=== PATIENT | female | born 1985 | race Two or more races ===

== ENCOUNTER 2018-05-13 15:29 | Emergency (ER) | payer OTHER ==
[~2018-05-13] VITALS: Ht 160 cm; Wt 65.8 kg
[2018-05-13] MEDS ORDERED: VENTOLIN HFA18 GM INH (15:39)
--- NOTE | 2018-05-13 15:53 | NUR ---
ED Nurse Note: PT WALKED IN TO ER TODAY FROM HOME. AOX4. PT C/O LOWER BACK PAIN AND HEADACHE, PAIN 8/10 X THIS MORNING. PT DENIES ANY RECENT INJURY OR TRAUMA. GAIT STABLE. PT DENIES ANY NUMBNESS OR TINGLING.
[2018-05-13 15:55] VITALS: BP 108/64
[2018-05-13] MEDS ORDERED: Ipratropium 0.02% Inh Soln 2.5ml UD HHN ONE (16:00)
[2018-05-13] MEDS ORDERED: Metoclopramide 10mg/2ml Inj IM ONE (16:00)
[2018-05-13] MEDS ORDERED: Albuterol ud Inhalation HHN ONE (16:00)
[2018-05-13] MEDS ORDERED: Acetaminophen 500mg (ES) tab ORAL ONE (16:00)
[2018-05-13] MEDS ORDERED: Methocarbamol 750mg tab ORAL ONE (16:00)
--- NOTE | 2018-05-13 16:03 | NUR ---
ED Nurse Note: RT AT BEDSIDE.
--- NOTE | 2018-05-13 16:03 | NUR ---
ED Nurse Note: XRAY AT BEDSIDE.
[2018-05-13 16:15] LABS: APPEARANCE,URINE CLEAR; BILIRUBIN, URINE NEGATIVE (NEGATIVE); COLOR,URINE PALE YELLOW; GLUCOSE, URINE (UA) NEGATIVE (NEGATIVE); KETONES,URINE NEGATIVE (NEGATIVE); LEUKOCYTE ESTERASE ,URINE 1+ (NEGATIVE); NITRITE,URINE NEGATIVE (NEGATIVE); PH,URINE 7 (4.5-8.0); PROTEIN,URINE NEGATIVE (NEGATIVE); UROBILINOGEN,URINE NORMAL MG/DL (0.0-1.0)
--- NOTE | 2018-05-13 16:16 | Emergency Room Report ---
History of Present Illness General Chief Complaint: Back Pain-No Injury Source: Patient Present Illness HPI 32-year-old female presents ED for evaluation. Patient complaining of headache and back pain starting today. Denies any fall or injury. Pain is throbbing, 8 out of 10, nonradiating. States she threw up once. Denies photophobia or blurry vision. Denies any neck stiffness. Denies fevers or chills. States she also feels chest tightness. History of asthma. No other aggravating relieving factors. Denies any other associated symptoms Allergies: Coded Allergies: No Known Allergies (Unverified , 05/13/18) Patient History Past Medical History: asthma Past Surgical History: none Pertinent Family History: none Social History: Denies: smoking, alcohol use, drug use Last Menstrual Period: DOES NOT REMEMBER Now: No Immunizations: UTD Reviewed Nursing Documentation: PMH: Agreed; PSxH: Agreed Nursing Documentation-PMH Hx Asthma: Yes Review of Systems All Other Systems: negative except mentioned in HPI Physical Exam Vital Signs Date Time Temp Pulse Resp B/P (MAP) Pulse Ox O2 Delivery O2 Flow Rate FiO2 05/13/18 15:35 98.6 99 19 100/60 99 Room Air Sp02 EP Interpretation: reviewed, normal General Appearance: no apparent distress, alert, GCS 15, non-toxic Head: normocephalic, atraumatic Eyes: bilateral eye normal inspection, bilateral eye PERRL, bilateral eye EOMI ENT: hearing grossly normal, normal pharynx, no angioedema, normal voice Neck: full range of motion, supple, no meningismus, supple/symm/no masses Respiratory: chest non-tender, normal breath sounds, decreased breath sounds, speaking full sentences, wheezing Cardiovascular #1: regular rate, rhythm, no edema Cardiovascular #2: 2+ carotid (R), 2+ carotid (L), 2+ radial (R), 2+ radial (L) , 2+ dorsalis pedis (R), 2+ dorsalis pedis (L) Gastrointestinal: normal bowel sounds, non tender, soft, non-distended, no guarding, no rebound Rectal: deferred Genitourinary: normal inspection, no CVA tenderness Musculoskeletal: back normal, gait/station normal, normal range of motion, non- tender Neurologic: alert, oriented x3, responsive, crusher operator III-XII nml as tested, motor strength/tone normal, sensory intact, cerebellar normal, normal gait, speech normal Psychiatric: judgement/insight normal, memory normal, no suicidal/homicidal ideation, anxious Reflexes: 3+ bicep (R), 3+ bicep (L), 3+ tricep (R), 3+ tricep (L), 3+ knee (R) , 3+ knee (L) Skin: normal color, no rash, warm/dry, well hydrated Lymphatic: no adenopathy Medical Decision Making Diagnostic Impression: Primary Impression: Back pain Qualified Codes: M54.6 - Pain in thoracic spine Additional Impressions: Asthma Qualified Codes: J45.909 - Unspecified asthma, uncomplicated Gastritis Qualified Codes: K29.00 - Acute gastritis without bleeding Headache Qualified Codes: R51 - Headache ER Course Hospital Course 32-year-old female presents with cough, back pain, headache and history of asthma Differential diagnoses include: URI, bronchitis, asthma/COPD, pneumonia Clinical course Patient placed on stretcher. After initial history, physical exam reveals female in no acute distress. No nuchal rigidity. Cranial nerves 2 through 12 intact. Reduced breath sounds bilaterally. I ordered Motrin, Reglan. Breathing treatment. Chest x-ray and UA UAunremarkable Chest x-rayno focal consolidation, no other acute process On reassessment headache and breathing improved. Patient is complaining of burning stomach pain. Patient states she has gastritis. States symptoms started shortly after taking the medications. Given GI cocktail and Pepcid here. On reassessment symptoms improved Safe for discharge close outpatient follow-up. We'll provide referrals Diagnosis - headahe, asthma, back pain, gastritis Stable and discharged home with prescriptions for Rx Fioricet, albuterol, zantac , robaxin, reglan. Instructed to followup with PMD. Return to ED if symptoms recur or worsen Labs Test 05/13/18 16:00 Urine Color Pale yellow Urine Appearance Clear Urine pH 7 (4.5-8.0) Urine Specific [place] 1.010 (1.005-1.035) Urine Protein Negative (NEGATIVE) Urine Glucose (UA) Negative (NEGATIVE) Urine Ketones Negative (NEGATIVE) Urine Blood 1+ (NEGATIVE) Urine Nitrite Negative (NEGATIVE) Urine Bilirubin Negative (NEGATIVE) Urine Urobilinogen Normal MG/DL (0.0-1.0) Urine Leukocyte Esterase 1+ (NEGATIVE) Urine RBC 0-2 /HPF (0 - 2) Urine WBC 2-4 /HPF (0 - 2) Urine Squamous Epithelial Cells Moderate /LPF (NONE/OCC) Urine Bacteria Few /HPF (NONE) Urine HCG, Qualitative Negative (NEGATIVE) Chest X-Ray Diagnostic Results Chest X-Ray Diagnostic Results : Chest X-Ray Ordered: Yes # of Views/Limited/Complete: 1 View Indication: Shortness of Breath EP Interpretation: Yes Interpretation: no consolidation, no effusion, no pneumothorax, no acute cardiopulmonary disease Impression: No acute disease Electronically Signed by: Electronically signed by Abhinav Perez MD Last Vital Signs Date Time Temp Pulse Resp B/P (MAP) Pulse Ox O2 Delivery O2 Flow Rate FiO2 05/13/18 15:55 98.4 92 18 108/64 98 Room Air Status: improved Disposition: HOME, SELF-CARE Condition: Stable Scripts Albuterol Sulfate* (ALBUTEROL SULFATE MDI*) 8.5 Gm Hfa.aer.ad 2 PUFF INH Q6H, #1 EA 0 Refills Prov: Abhinav Perez MD 05/13/18 Methocarbamol* (ROBAXIN-750*) 750 Mg Tablet 750 MG PO TID, #21 TAB 0 Refills Prov: Abhinav Perez MD 05/13/18 Ranitidine Hcl* (ZANTAC*) 150 Mg Tablet 150 MG ORAL TWICE A DAY, #30 TAB Prov: Abhinav Perez MD 05/13/18 Metoclopramide Hcl* (REGLAN*) 10 Mg Tablet 10 MG ORAL THREE TIMES A DAY for 5 Days, TAB Prov: Abhinav Perez MD 05/13/18 Acetamin/Butalbital/Caffeine* (FIORICET*) 1 Ea Tab 1 TAB ORAL Q6H, #15 TAB 0 Refills Prov: Abhinav Perez MD 05/13/18 Abhinav Perez MD May 13, 2018 16:16
--- NOTE | 2018-05-13 16:36 | Diagnostic Imaging Report ---
Indication: Shortness of breath Technique: One view of the chest Comparison: none Findings: Lungs and pleural spaces are clear. Heart size is normal Impression: No acute process
[2018-05-13] MEDS ORDERED: Lidocaine 2% Visc 15ml soln ORAL ONE (16:45)
[2018-05-13] MEDS ORDERED: Dicyclomine HCl 10mg/5ml oral soln ORAL ONE (16:45)
[2018-05-13] MEDS ORDERED: Mylanta II UD 30ml ORAL ONE (16:45)
[2018-05-13] MEDS ORDERED: ALBUTEROL SULF8.5 GM INH (17:03)
[2018-05-13] MEDS ORDERED: REGLAN10 MG ORAL (17:03)
[2018-05-13] MEDS ORDERED: FIORICET1 EA ORAL (17:03)
[2018-05-13] MEDS ORDERED: ROBAXIN-750750 MG PO (17:03)
[2018-05-13] MEDS ORDERED: RANITIDINE HCL150 MG ORAL (17:03)
[2018-05-13 17:05] VITALS: BP 104/62
--- NOTE | 2018-05-13 17:13 | NUR ---
ED Nurse Note: PT SITTING PEACEFULLY IN BED IN NAD. AOX4. PRESCRIPTIONS AND DISCHARGE PAPERWORK EXPLAINED TO PT. PT VERBALIZES UNDERSTANDING AND ALL QUESTIONS ANSWERED. PRESCRIPTIONS AND DISCHARGE PAPERWORK GIVEN TO PT AND ID WRISTBAND REMOVED. PT WALKED OUT OF ER WITH STEADY GAIT AND ALL BELONGINGS.
== END 2018-05-13 17:10 | disposition home or self-care (01) ==
LOC: EMR 16:14
DX: M54.6 Pain in thoracic spine (principal); J45.909 Unspecified asthma, uncomplicated; K29.00 Acute gastritis without bleeding; R51 Headache
CPT/HCPCS: 71045; 81003; 81025; 94640; 94664; 96372; 99284; J2765

== ENCOUNTER 2019-04-14 17:32 | Emergency (ER) | payer OTHER ==
[~2019-04-14] VITALS: Ht 167.6 cm; Wt 68.0 kg
[~2019-04-14 17:32] MED LIST: ALBUTEROL SULF8.5 GM INH; FIORICET1 EA ORAL; RANITIDINE HCL150 MG ORAL; REGLAN10 MG ORAL; ROBAXIN-750750 MG PO; VENTOLIN HFA18 GM INH
--- NOTE | 2019-04-14 18:05 | NUR ---
ED Nurse Note: Pt ambulated to ED d/t abdominal pain on lower region; nausea and vomting since this morning. Pt is AOx4, VSS, on RA; occitan in speaking. Placed on bed and gown; pt able to urinate, obtained specimen, sent to labs.
[2019-04-14 18:10] VITALS: BP 120/73
[2019-04-14] MEDS ORDERED: Omnipaque-300 100ml vial INJ PRN (18:45)
[2019-04-14 19:03] LABS: BASOPHILS % (AUTO) 1.4 % (0.0-2.0); EOSINOPHILS % (AUTO) 3.3 % (0.0-3.0); HEMATOCRIT 41.2 % (37.0-47.0); HEMOGLOBIN 13.5 G/DL (12.0-16.0); LYMPHOCYTES % (AUTO) 32.9 % (20.0-45.0); MEAN CORPUSCULAR VOLUME 97 FL (80-99); MONOCYTES % (AUTO) 6.4 % (1.0-10.0); PLATELET COUNT 246 K/UL (150-450); RED BLOOD COUNT 4.24 M/UL (4.20-5.40); WHITE BLOOD COUNT 9.4 K/UL (4.8-10.8)
[2019-04-14 19:08] LABS: APPEARANCE,URINE SLIGHTLY CLOUDY; BILIRUBIN, URINE NEGATIVE (NEGATIVE); COLOR,URINE PALE YELLOW; GLUCOSE, URINE (UA) NEGATIVE (NEGATIVE); KETONES,URINE NEGATIVE (NEGATIVE); LEUKOCYTE ESTERASE ,URINE NEGATIVE (NEGATIVE); NITRITE,URINE NEGATIVE (NEGATIVE); PH,URINE 6.5 (4.5-8.0); PROTEIN,URINE NEGATIVE (NEGATIVE); UROBILINOGEN,URINE NORMAL MG/DL (0.0-1.0)
--- NOTE | 2019-04-14 19:12 | NUR ---
ED Nurse Note: Received report from GILBERT Griffith. Reassessed patient, patient resting in bed, no acute distress.
--- NOTE | 2019-04-14 19:12 | NUR ---
HAND-OFF: Report given to Alyssa HUNT.
[2019-04-14 19:15] LABS: ANION GAP 12 mmol/L (5-15); BLOOD UREA NITROGEN 10 mg/dL (7-18); CALCIUM 9.8 MG/DL (8.5-10.1); CARBON DIOXIDE 26 MMOL/L (21-32); CHLORIDE 104 MMOL/L (98-107); CREATININE 0.6 MG/DL (0.55-1.30); POTASSIUM 3.8 MMOL/L (3.5-5.1); SODIUM 142 MMOL/L (136-145)
[2019-04-14 19:20] LABS: ALANINE AMINOTRANSFERASE 30 U/L (12-78); ALBUMIN 4.1 G/DL (3.4-5.0); ALKALINE PHOSPHATASE 91 U/L (46-116); ASPARTATE AMINO TRANSFERASE 21 U/L (15-37); BILIRUBIN,TOTAL 0.5 MG/DL (0.2-1.0)
[2019-04-14 19:35] VITALS: BP 122/75
--- NOTE | 2019-04-14 19:42 | NUR ---
ED Nurse Note: Patient taken to CT in stable condition.
--- NOTE | 2019-04-14 20:08 | Diagnostic Imaging Report ---
INDICATION: Abdominal pain TECHNIQUE: Continuous helical transaxial imaging of the abdomen and pelvis was obtained from the lung bases to the pubic symphysis during intravenous contrast administration. Coronal 2-D reformats were also obtained. Study obtained in a Siemens sensation [address] Automatic Exposure Control was utilized. Total Dose length Product (DLP): 297.[address] Dose Index Volume (CTDIvol): 5.3 mGy COMPARISON: None FINDINGS: Study is degraded by motion. Lungs: The visualized lung bases are clear. Liver: Unremarkable Gallbladder/biliary system: No gallstones are identified. There is no evidence of intrahepatic or extrahepatic biliary ductal dilatation. Spleen: Unremarkable Pancreas: Unremarkable Kidneys/Bladder: No hydronephrosis identified. Both kidneys enhance symmetrically. The urinary bladder is unremarkable.. Adrenal glands: Unremarkable Aorta/IVC: Unremarkable Bowel: There is no evidence of bowel obstruction. The appendix is partially seen and appears normal. Peritoneum: Uterus noted. No free fluid seen.. Bones: Unremarkable IMPRESSION: No acute findings Limited study due to motion The CT scanner at [facility] is accredited by the [employer] and the scans are performed using dose optimization techniques as appropriate to a performed exam including Automatic Exposure control.
--- NOTE | 2019-04-14 20:12 | NUR ---
ED Nurse Note: Patient back from CT in stable condition.
--- NOTE | 2019-04-14 20:52 | NUR ---
ED Nurse Note: ERMD at bedside.
[2019-04-14] MEDS ORDERED: FAMOTIDINE20 MG ORAL (20:58)
[2019-04-14] MEDS ORDERED: DICYCLOMINE HCL10 MG ORAL (20:58)
[2019-04-14] MEDS ORDERED: ONDANSETRON ODT4 MG BC (20:58)
[2019-04-14 21:04] VITALS: BP 128/82
--- NOTE | 2019-04-14 21:04 | NUR ---
ER DISCHARGE NOTE: Patient is cleared to be discharged per ERMD, pt is aox4, on room air, with stable vital signs. pt was given dc and prescription instructions, pt was able to verbalize understanding, pt id band and iv site removed intact without complications. pt is able to ambulate with steady gait. pt took all belongings. pt stable upon discharge.
--- NOTE | 2019-04-20 14:13 | Emergency Room Report ---
History of Present Illness General Chief Complaint: Abdominal Pain Source: Patient Present Illness HPI 33-year-old female presents ED for evaluation. Complaining of abdominal pain with vomiting and diarrhea x1 day. Pain is cramping, right-sided, 8 out of 10, nonradiating. Notes nausea and vomiting. Notes multiple watery loose stools. Denies fevers or chills. Denies sick contacts or recent travel. No other aggravating relieving factors. Denies any other associated symptoms Allergies: Coded Allergies: No Known Allergies (Unverified , 05/13/18) Patient History Past Medical History: asthma Past Surgical History: none Pertinent Family History: none Social History: Denies: smoking, alcohol use, drug use Now: No Immunizations: UTD Reviewed Nursing Documentation: PMH: Agreed; PSxH: Agreed Nursing Documentation-PMH Past Medical History: No History, Except For Hx Asthma: Yes Review of Systems All Other Systems: negative except mentioned in HPI Physical Exam Sp02 EP Interpretation: reviewed, normal General Appearance: no apparent distress, alert, GCS 15, non-toxic Head: normocephalic, atraumatic Eyes: bilateral eye normal inspection, bilateral eye PERRL ENT: hearing grossly normal, normal pharynx, no angioedema, normal voice Neck: full range of motion, supple/symm/no masses Respiratory: chest non-tender, lungs clear, normal breath sounds, speaking full sentences Cardiovascular #1: regular rate, rhythm, no edema Cardiovascular #2: 2+ carotid (R), 2+ carotid (L), 2+ radial (R), 2+ radial (L) , 2+ dorsalis pedis (R), 2+ dorsalis pedis (L) Gastrointestinal: normal bowel sounds, non tender, soft, non-distended, no guarding, no rebound Rectal: deferred Genitourinary: normal inspection, no CVA tenderness Musculoskeletal: back normal, normal range of motion, gait/station normal, non- tender Neurologic: alert, motor strength/tone normal, oriented x3, sensory intact, responsive, speech normal Psychiatric: judgement/insight normal, memory normal, mood/affect normal, no suicidal/homicidal ideation Reflexes: 3+ bicep (R), 3+ bicep (L), 3+ tricep (R), 3+ tricep (L), 3+ knee (R) , 3+ knee (L) Lymphatic: no adenopathy Medical Decision Making Diagnostic Impression: Primary Impression: Gastroenteritis ER Course Hospital Course 33-year-old F presents to ED with abdominal pain, vomiting diarrhea Differential diagnosis includes-appendicitis, cholecystitis, small bowel obstruction, gastritis, Clinical course Patient placed on stretcher. After initial history and physical I ordered labs , IV fluids, pain medications Labs - no leukocytosis, electrolytes ok, LFTs normal, UA unremarkable On reassessment patient continues to have pain more notably in right lower quadrant. CT ordered CT scan shows no acute pathology I discussed findings with patient. Course is viral self-limited. Will discharge to home. Safe for discharge for close outpatient follow-up. States she does not have a PMD I will provide referrals. I feel this is a highly complex case requiring extensive working including EKG/ Rhythm strip, Xray/CT/US, Blood/urine lab work, repeat exams while in ED, and administration of strong opiates/narcotics for pain control, admission to hospital or close patient follow up. Diagnosis - gastroenteritis Stable and discharged to home with Rx magdaleno suggs pepcid. Followup with PMD. Return to ED if symptoms recur or worsen Labs Test 04/14/19 18:37 04/14/19 18:40 Urine Color Pale yellow Urine Appearance Slightly cloudy Urine pH 6.5 (4.5-8.0) Urine Specific [place] 1.010 (1.005-1.035) Urine Protein Negative (NEGATIVE) Urine Glucose (UA) Negative (NEGATIVE) Urine Ketones Negative (NEGATIVE) Urine Blood Negative (NEGATIVE) Urine Nitrite Negative (NEGATIVE) Urine Bilirubin Negative (NEGATIVE) Urine Urobilinogen Normal MG/DL (0.0-1.0) Urine Leukocyte Esterase Negative (NEGATIVE) Urine RBC 0 /HPF (0 - 2) Urine WBC 0-2 /HPF (0 - 2) Urine Squamous Epithelial Cells Moderate /LPF (NONE/OCC) Urine Bacteria Occasional /HPF (NONE) Urine HCG, Qualitative Negative (NEGATIVE) White Blood Count 9.4 K/UL (4.8-10.8) Red Blood Count 4.24 M/UL (4.20-5.40) Hemoglobin 13.5 G/DL (12.0-16.0) Hematocrit 41.2 % (37.0-47.0) Mean Corpuscular Volume 97 FL (80-99) Mean Corpuscular Hemoglobin 31.7 PG (27.0-31.0) Mean Corpuscular Hemoglobin Concent 32.6 G/DL (32.0-36.0) Red Cell Distribution Width 12.0 % (11.6-14.8) Platelet Count 246 K/UL (150-450) Mean Platelet Volume 8.3 FL (6.5-10.1) Neutrophils (%) (Auto) 56.0 % (45.0-75.0) Lymphocytes (%) (Auto) 32.9 % (20.0-45.0) Monocytes (%) (Auto) 6.4 % (1.0-10.0) Eosinophils (%) (Auto) 3.3 % (0.0-3.0) Basophils (%) (Auto) 1.4 % (0.0-2.0) Sodium Level 142 MMOL/L (136-145) Potassium Level 3.8 MMOL/L (3.5-5.1) Chloride Level 104 MMOL/L (98-107) Carbon Dioxide Level 26 MMOL/L (21-32) Anion Gap 12 mmol/L (5-15) Blood Urea Nitrogen 10 mg/dL (7-18) Creatinine 0.6 MG/DL (0.55-1.30) Estimat Glomerular Filtration Rate > 60 mL/min (>60) Glucose Level 98 MG/DL (74-106) Calcium Level 9.8 MG/DL (8.5-10.1) Total Bilirubin 0.5 MG/DL (0.2-1.0) Aspartate Amino Transf (AST/SGOT) 21 U/L (15-37) Alanine Aminotransferase (ALT/SGPT) 30 U/L (12-78) Alkaline Phosphatase 91 U/L (46-116) Total Protein 8.3 G/DL (6.4-8.2) Albumin 4.1 G/DL (3.4-5.0) Globulin 4.2 g/dL Albumin/Globulin Ratio 1.0 (1.0-2.7) Lipase 158 U/L (73-393) CT/MRI/US Diagnostic Results CT/MRI/US Diagnostic Results : Imaging Test Ordered: CT A/P Impression Lungs: The visualized lung bases are clear. Liver: Unremarkable Gallbladder/biliary system: No gallstones are identified. There is no evidence of intrahepatic or extrahepatic biliary ductal dilatation. Spleen: Unremarkable Pancreas: Unremarkable Kidneys/Bladder: No hydronephrosis identified. Both kidneys enhance symmetrically. The urinary bladder is unremarkable.. Adrenal glands: Unremarkable Aorta/IVC: Unremarkable Bowel: There is no evidence of bowel obstruction. The appendix is partially seen and appears normal. Peritoneum: Uterus noted. No free fluid seen.. Bones: Unremarkable IMPRESSION: No acute findings Limited study due to motion Status: improved Disposition: HOME, SELF-CARE Condition: Stable Scripts Dicyclomine Hcl* (DICYCLOMINE HCL*) 10 Mg Capsule 10 MG ORAL QID, #20 CAP Prov: Abhinav Perez MD 04/14/19 Ondansetron Odt* (ZOFRAN ODT*) 4 Mg Tab.rapdis 4 MG BC EVERY 6 HOURS PRN for Nausea & Vomiting, #10 TAB 0 Refills Prov: Abhinav Perez MD 04/14/19 Famotidine* (Pepcid 20mg tablet*) 20 Mg Tablet 20 MG ORAL DAILY, #30 TAB 0 Refills Prov: Abhinav Perez MD 04/14/19 Referrals: [facility]ERR[facility] (PCP) Rosalino Haro [facility] Patient Instructions: Viral Gastroenteritis, Adult, [id number] Abhinav Perez MD Apr 20, 2019 14:13
== END 2019-04-14 21:04 | disposition home or self-care (01) ==
LOC: EMR 20:35
DX: K52.9 Noninfective gastroenteritis and colitis, unspecified (principal)
CPT/HCPCS: 36415; 74177; 80053; 81003; 81025; 83690; 85025; 96361; 96374; 96375; J2405; J7030; Q9967; S0028; Z7502; 99284

== ENCOUNTER 2019-07-31 11:20 | Emergency (ER) | payer MEDICAID, OTHER ==
[~2019-07-31] VITALS: Ht 160 cm; Wt 67.1 kg
[~2019-07-31 11:20] MED LIST changes: +DICYCLOMINE HCL10 MG ORAL; +FAMOTIDINE20 MG ORAL; +ONDANSETRON ODT4 MG BC
[2019-07-31 11:40] VITALS: BP 102/70
--- NOTE | 2019-07-31 11:43 | Emergency Room Report ---
History of Present Illness General Chief Complaint: Pain Source: Patient Present Illness HPI Patient is a 33-year-old female past medical history of lupus on hydroxychloroquine and asthma who presents to the ER complaining of bone pain. Patient states that her lupus flareups caused her to have different bone pain that is treated with hydroxychloroquine as well as prednisone. Patient states that her last flareup was 1 month ago. Patient complains of 3 days of lower back pain and lower extremity joint pain. She denies any fever or chills. She denies any falls. She denies any abdominal pain. She denies any nausea or vomiting. Patient states that she took hydroxychloroquine as well as oral morphine and a muscle relaxant yesterday for her pain but has not taken anything today. She denies any chest pain or shortness of breath. Allergies: Coded Allergies: No Known Allergies (Unverified , 05/13/18) COVID-19 Screening Contact w/high risk pt: No Recent Travel to affected area: No Experienced COVID-19 symptoms?: No COVID-19 Testing performed HAMMERER TAB: No Patient History Last Menstrual Period: 07/19/19 Now: No : 4 Para: 4 Reviewed Nursing Documentation: PMH: Agreed; PSxH: Agreed Nursing Documentation-PMH Past Medical History: No History, Except For Hx Asthma: Yes Hx Neurological Problems: Yes - Lupus Review of Systems All Other Systems: negative except mentioned in HPI Physical Exam Vital Signs Date Time Temp Pulse Resp B/P (MAP) Pulse Ox O2 Delivery O2 Flow Rate FiO2 07/31/19 11:24 98.1 98 18 102/70 (81) 100 Room Air Sp02 EP Interpretation: reviewed, normal General Appearance: alert, GCS 15, non-toxic, mild distress Head: normocephalic, atraumatic Eyes: bilateral eye normal inspection, bilateral eye PERRL ENT: hearing grossly normal, normal pharynx, no angioedema, normal voice Neck: full range of motion, supple/symm/no masses Respiratory: chest non-tender, lungs clear, normal breath sounds, speaking full sentences Cardiovascular #1: regular rate, rhythm, no edema Gastrointestinal: normal bowel sounds, non tender, soft, non-distended, no guarding, no rebound Rectal: deferred Genitourinary: no CVA tenderness Musculoskeletal: no calf tenderness, pelvis stable, other - Bilateral posterior hip and pelvic tenderness to palpation as well as bilateral knee joint tenderness with no inflammation or erythema. Normal range of motion, warm extremity, 2+ DP pulses Neurologic: alert, motor strength/tone normal, oriented x3, sensory intact, responsive, speech normal Psychiatric: no suicidal/homicidal ideation Skin: no rash Lymphatic: no adenopathy Medical Decision Making Diagnostic Impression: Primary Impression: Lupus Additional Impression: Arthralgia ER Course Patient presents with lupus flare. 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 I have started her on prednisone in the emergency room. I have also given her a muscle relaxant and NSAID. On reevaluation she states that her symptoms are improving. Patient is afebrile and her vital signs are stable. UA demonstrates no evidence for UTI and test is negative. Patient is able to ambulate without assistance. After discussing risks and benefits of further diagnostics, treatment plans, as well as indications for and risks of admission, the patient is agreeable to being discharged home. I have explained that their evaluation and treatment in the emergency department today is an important step towards them achieving better health but that their evaluation today is not intended to replace further evaluation and treatment by a physician in their local clinic. I have explained that while the current findings suggest no immediate life threatening emergency they will require further evaluation and treatment by a physician of their choice in their area. They understand that it will be necessary for them to review the final reports of their ED visit with their clinic physician. We have reviewed indications for return to the Emergency Department. I have explained that additional time may need to pass and/or additional testing as an outpatient may be necessary before a definitive diagnosis can be made. They tell me they are willing to follow up as instructed within the timeframe I recommend. They appear to understand what we discussed. Additionally they understand that if they are unable to be seen by an outpatient physician they are welcome, and in fact should, return to the Emergency Department for a repeat evaluation. The patient is stable at time of discharge. Last Vital Signs Date Time Temp Pulse Resp B/P (MAP) Pulse Ox O2 Delivery O2 Flow Rate FiO2 07/31/19 11:24 98.1 98 18 102/70 (81) 100 Room Air Disposition: HOME, SELF-CARE Condition: Stable Scripts Oxycodone/Acetaminophen 5-325* (PERCOCET 5-325 MG TABLET*) 1 Each Tablet 1 TAB ORAL Q6H PRN for For Pain, #12 TAB 0 Refills Prov: Jacque Thakur M.D. 07/31/19 Prednisone* (PREDNISONE*) 20 Mg Tablet 40 MG ORAL DAILY, #5 TAB Prov: Jacque Thakur M.D. 07/31/19 Referrals: NON PHYSICIAN (PCP) Additional Instructions: The patient was provided with discharge instructions, notified to follow-up with a primary care doctor and or specialist in the next 24-48 hours, and to return to the ED if they have worsening of their symptoms. Please note that this report is being documented using [employer] technology. This can lead to erroneous entry secondary to incorrect interpretation by the dictating instrument. Jacque Thakur M.D. Jul 31, 2019 11:43
[2019-07-31] MEDS ORDERED: Methocarbamol 500mg tab ORAL ONE (11:45)
[2019-07-31] MEDS ORDERED: Ketorolac 60mg Inj IM ONE (11:45)
[2019-07-31 11:48] LABS: BILIRUBIN, URINE NEGATIVE (NEGATIVE); COLOR,URINE PALE YELLOW; GLUCOSE, URINE (UA) NEGATIVE (NEGATIVE); KETONES,URINE NEGATIVE (NEGATIVE); LEUKOCYTE ESTERASE ,URINE NEGATIVE (NEGATIVE); NITRITE,URINE NEGATIVE (NEGATIVE); PH,URINE 5 (4.5-8.0); PROTEIN,URINE NEGATIVE (NEGATIVE); UROBILINOGEN,URINE NORMAL MG/DL (0.0-1.0)
[2019-07-31 11:51] LABS: APPEARANCE,URINE CLEAR
[2019-07-31] MEDS ORDERED: PREDNISONE20 MG ORAL (11:55)
[2019-07-31] MEDS ORDERED: PERCOCET 5-3251 EACH ORAL (12:07)
[2019-07-31 12:09] VITALS: BP 102/70
== END 2019-07-31 12:11 | disposition home or self-care (01) ==
LOC: EMR 11:30
DX: M32.9 Systemic lupus erythematosus, unspecified (principal); R52 Pain, unspecified; M54.5 Low back pain
CPT/HCPCS: 81003; 81025; 96372; J7512; Z7502; 99283

== ENCOUNTER 2019-11-30 22:18 | Emergency (ER) | payer OTHER ==
[~2019-11-30] VITALS: Ht 160 cm; Wt 68.0 kg
[~2019-11-30 22:18] MED LIST changes: +PERCOCET 5-3251 EACH ORAL; +PREDNISONE20 MG ORAL
--- NOTE | 2019-11-30 22:41 | NUR ---
ED Nurse Note: Patient walked in from home d/t upper body aching pain on chest, shoulders, and upper back 09/19. Patient aao x 4 and ambulatory with steady gait. Patient also reports loss of taste and appetite. Patient changed into gown and placed on panel monitor. No acute distress noted during assessment.
[2019-11-30 22:47] VITALS: BP 122/68
--- NOTE | 2019-11-30 22:49 | NUR ---
ED Nurse Note: Patient also reports nausea, vomiting, diarrhea for 4 days. Audible wheezing noted during assessment.
--- NOTE | 2019-11-30 22:57 | Emergency Room Report ---
History of Present Illness General Chief Complaint: Flu Like Symptoms Source: Patient Present Illness HPI This is a 33-year-old female with a history of asthma. She is not taking any medication. She presents with chief complaint of flulike illness. Onset for last 4 days. She has cough and congestion. No short of breath. Worse with exertion. Better with rest. Denies any fever or chills. Cough is nonpr oductive in nature. Also with body aches and pain. No sick contact. Had Covid testing 2 months ago and was negative. 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 COVID-19 Screening: Negative COVID-19 COVID-19 Testing Source: 1 month ago Patient History Past Medical History: see triage record, old chart reviewed, asthma Past Surgical History: none Pertinent Family History: none Social History: Denies: smoking Last Menstrual Period: 11/14/2019 Now: No Immunizations: other Reviewed Nursing Documentation: PMH: Agreed; PSxH: Agreed Nursing Documentation-PMH Hx Asthma: Yes Hx Neurological Problems: Yes - Lupus Review of Systems Eye: Reports: nose congestion; Denies: eye pain, blurred vision ENT: Denies: ear pain, nose congestion, throat swelling Respiratory: Reports: cough, shortness of breath Cardiovascular: Denies: chest pain, palpitations Gastrointestinal: Denies: abdominal pain, diarrhea, nausea, vomiting Musculoskeletal: Denies: back pain, joint pain Skin: Denies: rash Neurological: Denies: headache, numbness Endocrine: Denies: increased thirst, increased urine Hematologic/Lymphatic: Denies: easy bruising All Other Systems: negative except mentioned in HPI Physical Exam Vital Signs Date Time Temp Pulse Resp B/P (MAP) Pulse Ox O2 Delivery O2 Flow Rate FiO2 11/30/19 22:30 98.8 88 18 113/67 (82) 100 Room Air Vitals normal Sp02 EP Interpretation: reviewed, normal General Appearance: well appearing, no apparent distress, alert Head: normocephalic, atraumatic Eyes: bilateral eye PERRL, bilateral eye EOMI ENT: hearing grossly normal, normal pharynx Neck: full range of motion, supple, no meningismus Respiratory: chest non-tender, normal breath sounds, wheezing - Slight expiratory wheezing Cardiovascular #1: regular rate, rhythm, no murmur Gastrointestinal: normal bowel sounds, non tender, no mass, no organomegaly, no bruit, non-distended Musculoskeletal: back normal, normal range of motion, gait/station normal Psychiatric: mood/affect normal Medical Decision Making Diagnostic Impression: Primary Impression: Acute bronchitis due to COVID-19 virus ER Course Patient presents with symptoms consistent with Covid infection. She is not in respiratory distress. Oxygenation is high percent on room air. Chest x-ray normal. She has no criteria for admission. Will discharge home. EKG Diagnostic Results Troponin ordered: No Rate: normal Rhythm: NSR ST Segments: no acute changes Chest X-Ray Diagnostic Results Chest X-Ray Diagnostic Results : Chest X-Ray Ordered: Yes # of Views/Limited/Complete: 1 View Indication: Shortness of Breath EP Interpretation: Yes Interpretation: no consolidation, no effusion, no pneumothorax, no acute cardiopulmonary disease Impression: No acute disease Electronically Signed by: Rosendo Upton MD Last Vital Signs Date Time Temp Pulse Resp B/P (MAP) Pulse Ox O2 Delivery O2 Flow Rate FiO2 11/30/19 22:47 85 18 Room Air 11/30/19 22:47 98.8 122/68 100 Status: improved Disposition: HOME, SELF-CARE Condition: Stable Scripts Vitamin D (Vitamin D3) 10 Mcg Tablet 400 MCG ORAL DAILY, #30 TAB Prov: Rosendo Upton MD 11/30/19 Zinc Amino Acid Chelate (ZINC) 50 Mg Tablet 50 MG ORAL DAILY, #30 TAB Prov: Rosendo Upton MD 11/30/19 Prednisone* (PREDNISONE*) 20 Mg Tablet 40 MG ORAL DAILY, #8 TAB Prov: Rosendo Upton MD 11/30/19 Albuterol Sulfate* (Albuterol Sulfate Hfa*) 8.5 Gm Hfa.aer.ad 2 PUFF INH Q4H, #1 INH Prov: Rosendo Upton MD 11/30/19 Referrals: NON PHYSICIAN (PCP) Additional Instructions: Practice social distancing. Wear a mask. Good handwashing. Follow-up with your doctor in 7 days for recheck. Return if symptoms worsen. Rosendo Upton MD Nov 30, 2019 22:57
[2019-11-30] MEDS ORDERED: Albuterol 90mcg Inhaler 8gm INH ONE (23:00)
[2019-11-30] MEDS ORDERED: VITAMIN D310 MCG ORAL (23:46)
[2019-11-30] MEDS ORDERED: ALBUTEROL SULF8.5 G1 INH (23:46)
[2019-11-30] MEDS ORDERED: ZINC50 M2 ORAL (23:46)
[2019-11-30] MEDS ORDERED: PREDNISONE20 MG ORAL (23:46)
[2019-12-01] VITALS: BP 117/72
--- NOTE | 2019-12-01 | NUR ---
ER DISCHARGE NOTE: Patient is cleared to be discharged per ERMD, pt is aox4, on room air, with stable vital signs. pt was given dc and prescription instructions, pt was able to verbalize understanding, pt id band removed. pt is able to ambulate with steady gait. pt took all belongings. pt stable upon discharge.
--- NOTE | 2019-12-01 11:46 | Diagnostic Imaging Report ---
Procedure: XRAY Chest 1v Reason for study: Reason For Exam: COUGH Comparison films: 05/13/2018. FINDINGS: A single one view chest is obtained. Vascularity is normal. The lung flannery are clear bilaterally. Cardiac and mediastinal silhouette are within normal limits. CP angles are sharp. The bony thorax appear unremarkable. IMPRESSION: NO ACUTE CARDIOPULMONARY DISEASE.
== END 2019-12-01 | disposition home or self-care (01) ==
LOC: EMR 22:53
DX: U07.1 COVID-19 (principal); J20.8 Acute bronchitis due to other specified organisms
CPT/HCPCS: 71045; J7512; U0002; Z7502; 99283

== ENCOUNTER 2019-12-03 11:23 | Emergency (ER) | payer OTHER ==
[~2019-12-03] VITALS: Ht 160 cm; Wt 68.0 kg
[~2019-12-03 11:23] MED LIST changes: +ALBUTEROL SULF8.5 G1 INH; +VITAMIN D310 MCG ORAL; +ZINC50 M2 ORAL
[2019-12-03 11:40] VITALS: BP 134/79
--- NOTE | 2019-12-03 11:40 | NUR ---
ED Nurse Note: Patient was brought in by [facility] 26 from home for SOB, abd pain with n/v/d x 3 days. Per patient she was tested covid + on 12/02/19. sp02 is 99% RA, AAO x4, VSS at this time.
[2019-12-03] MEDS ORDERED: Acetaminophen 500mg (ES) tab ORAL ONE (12:00)
[2019-12-03 12:51] LABS: BASOPHILS % (AUTO) 0.6 % (0.0-2.0); EOSINOPHILS % (AUTO) 0.1 % (0.0-3.0); HEMATOCRIT 44.9 % (37.0-47.0); HEMOGLOBIN 14.9 G/DL (12.0-16.0); LYMPHOCYTES % (AUTO) 17.8 % (20.0-45.0); MEAN CORPUSCULAR VOLUME 97 FL (80-99); MONOCYTES % (AUTO) 2.3 % (1.0-10.0); NEUTROPHILS % (AUTO) 79.1 % (45.0-75.0); PLATELET COUNT 230 K/UL (150-450); RED BLOOD COUNT 4.63 M/UL (4.20-5.40); RED CELL DISTRIBUTION WIDTH 11.8 % (11.6-14.8); WHITE BLOOD COUNT 9.7 K/UL (4.8-10.8)
[2019-12-03 12:52] LABS: APPEARANCE,URINE CLEAR; BILIRUBIN, URINE NEGATIVE (NEGATIVE); COLOR,URINE PALE YELLOW; GLUCOSE, URINE (UA) NEGATIVE (NEGATIVE); KETONES,URINE NEGATIVE (NEGATIVE); LEUKOCYTE ESTERASE ,URINE 2+ (NEGATIVE); NITRITE,URINE NEGATIVE (NEGATIVE); PH,URINE 8 (4.5-8.0); PROTEIN,URINE NEGATIVE (NEGATIVE); UROBILINOGEN,URINE NORMAL MG/DL (0.0-1.0)
[2019-12-03 13:07] LABS: ANION GAP 11 mmol/L (5-15); BLOOD UREA NITROGEN 13 mg/dL (7-18); CALCIUM 9.6 MG/DL (8.5-10.1); CARBON DIOXIDE 24 MMOL/L (21-32); CHLORIDE 104 MMOL/L (98-107); SODIUM 138 MMOL/L (136-145)
[2019-12-03 13:12] LABS: ALANINE AMINOTRANSFERASE 133 U/L (12-78); ALBUMIN 4.2 G/DL (3.4-5.0); ALBUMIN/GLOBULIN RATIO 1.3 (1.0-2.7); ALKALINE PHOSPHATASE 81 U/L (46-116); ASPARTATE AMINO TRANSFERASE 46 U/L (15-37); BILIRUBIN,TOTAL 0.6 MG/DL (0.2-1.0)
[2019-12-03] MEDS ORDERED: FAMOTIDINE20 MG ORAL (14:09)
[2019-12-03] MEDS ORDERED: ZITHROMAX250 MG ORAL (14:09)
[2019-12-03] MEDS ORDERED: ONDANSETRON ODT4 MG BC (14:09)
[2019-12-03] MEDS ORDERED: ALBUTEROL SULF8.5 G1 INH (14:09)
[2019-12-03 14:40] VITALS: BP 134/79
--- NOTE | 2019-12-03 14:45 | NUR ---
ER DISCHARGE NOTE: Patient is cleared to be discharged per ERMD, pt is aox4, on room air, with stable vital signs. pt was given dc and prescription instructions, pt was able to verbalize understanding, pt id band and iv site removed without complications. pt is able to ambulate with steady gait. pt took all belongings.
--- NOTE | 2019-12-03 14:56 | Diagnostic Imaging Report ---
Procedure: XRAY Chest 1v Reason for study: Chest pain. Comparison films: 11/30/2019. FINDINGS: A single one view chest is obtained. Vascularity is normal. The lung flannery are clear bilaterally. Cardiac and mediastinal silhouette are within normal limits. CP angles are sharp. The bony thorax appear unremarkable. IMPRESSION: NO ACUTE CARDIOPULMONARY DISEASE.
--- NOTE | 2019-12-03 16:16 | Emergency Room Report ---
History of Present Illness General Chief Complaint: Dyspnea/Respdistress Source: Patient Present Illness HPI 33-year-old female presents to ED for evaluation. Coughing and shortness of breath. Brought in by EMS from home. Also complaining of vomiting and diarrhea. Tested positive for Covid yesterday. Denies chest pain. Denies fevers or chills. No other aggravating relieving factors. 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 COVID-19 Screening: Positive COVID-19 COVID-19 Testing Source: KINESEOLOGIST Patient History Past Medical History: asthma, other - Lupus Pertinent Family History: none Social History: Denies: smoking, alcohol use, drug use Last Menstrual Period: nA Now: No Immunizations: UTD Reviewed Nursing Documentation: PMH: Agreed; PSxH: Agreed Nursing Documentation-PMH Past Medical History: No History, Except For Hx Asthma: Yes Hx Neurological Problems: Yes - Lupus Review of Systems All Other Systems: negative except mentioned in HPI Physical Exam Vital Signs Date Time Temp Pulse Resp B/P (MAP) Pulse Ox O2 Delivery O2 Flow Rate FiO2 12/03/19 11:18 97.9 60 18 134/79 (97) 99 Room Air Sp02 EP Interpretation: reviewed, normal General Appearance: no apparent distress, alert, GCS 15, non-toxic Head: normocephalic, atraumatic Eyes: bilateral eye normal inspection, bilateral eye PERRL ENT: hearing grossly normal, normal pharynx, no angioedema, normal voice Neck: full range of motion, supple/symm/no masses Respiratory: chest non-tender, lungs clear, normal breath sounds, speaking full sentences Cardiovascular #1: regular rate, rhythm, no edema Cardiovascular #2: 2+ carotid (R), 2+ carotid (L), 2+ radial (R), 2+ radial (L), 2+ dorsalis pedis (R), 2+ dorsalis pedis (L) Gastrointestinal: normal bowel sounds, non tender, soft, non-distended, no guar ding, no rebound Rectal: deferred Genitourinary: normal inspection, no CVA tenderness Musculoskeletal: back normal, normal range of motion, gait/station normal, non- tender Neurologic: alert, motor strength/tone normal, oriented x3, sensory intact, responsive, speech normal Psychiatric: judgement/insight normal, memory normal, mood/affect normal, no suicidal/homicidal ideation Reflexes: 3+ bicep (R), 3+ bicep (L), 3+ tricep (R), 3+ tricep (L), 3+ knee (R), 3+ knee (L) Skin: no rash Lymphatic: no adenopathy Medical Decision Making Diagnostic Impression: Primary Impression: Gastroenteritis Additional Impression: Acute bronchitis due to COVID-19 virus ER Course Hospital Course 33-year-old female presents with cough, vomiting and diarrhea. Recently diagnosed with Covid Differential diagnoses include: gastroenteritis, bronchitis, asthma/COPD, pneumonia Clinical course Patient placed on stretcher. In isolation. I wore full PPE. After initial history, physical exam reveals a female in no acute distress. Bilateral TM unremarkable. No pharyngeal erythema. No tonsillar exudates. No lymphadenopathy. lungs clear. I ordered labs, IV fluids, meds, chest x-ray. Labs reviewed- no leukocytosis, hemoglobin/hematocrit stable, electrolytes okay CXR no focal consolidatoin On reassessment patient symptoms improved. Vitals stable. No respiratory distress. Covid is viral and self-limited. Recommend discharge to home with supportive treatment. I will provide referrals Diagnosis - gastroenteritis, acute bronchitis due to COVID Stable and discharged home with prescriptions for albuterol, Z-Robert, Pepcid, Zofran. Instructed to followup with PMD. Return to ED if symptoms recur or worsen Laboratory Tests Test 12/03/19 12:30 White Blood Count 9.7 K/UL (4.8-10.8) Red Blood Count 4.63 M/UL (4.20-5.40) Hemoglobin 14.9 G/DL (12.0-16.0) Hematocrit 44.9 % (37.0-47.0) Mean Corpuscular Volume 97 FL (80-99) Mean Corpuscular Hemoglobin 32.2 PG (27.0-31.0) H Mean Corpuscular Hemoglobin Concent 33.2 G/DL (32.0-36.0) Red Cell Distribution Width 11.8 % (11.6-14.8) Platelet Count 230 K/UL (150-450) Mean Platelet Volume 10.0 FL (6.5-10.1) Neutrophils (%) (Auto) 79.1 % (45.0-75.0) H Lymphocytes (%) (Auto) 17.8 % (20.0-45.0) L Monocytes (%) (Auto) 2.3 % (1.0-10.0) Eosinophils (%) (Auto) 0.1 % (0.0-3.0) Basophils (%) (Auto) 0.6 % (0.0-2.0) Urine Color Pale yellow Urine Appearance Clear Urine pH 8 (4.5-8.0) Urine Specific [place] 1.005 (1.005-1.035) Urine Protein Negative (NEGATIVE) Urine Glucose (UA) Negative (NEGATIVE) Urine Ketones Negative (NEGATIVE) Urine Blood Negative (NEGATIVE) Urine Nitrite Negative (NEGATIVE) Urine Bilirubin Negative (NEGATIVE) Urine Urobilinogen Normal MG/DL (0.0-1.0) Urine Leukocyte Esterase 2+ (NEGATIVE) H Urine RBC 0 /HPF (0 - 2) Urine WBC 2-4 /HPF (0 - 2) Urine Squamous Epithelial Cells Occasional /LPF Urine Bacteria Few /HPF (NONE) Urine HCG, Qualitative Negative (NEGATIVE) Sodium Level 138 MMOL/L (136-145) Potassium Level 4.0 MMOL/L (3.5-5.1) Chloride Level 104 MMOL/L (98-107) Carbon Dioxide Level 24 MMOL/L (21-32) Anion Gap 11 mmol/L (5-15) Blood Urea Nitrogen 13 mg/dL (7-18) Creatinine 1.0 MG/DL (0.55-1.30) Estimat Glomerular Filtration Rate > 60 mL/min (>60) Glucose Level 116 MG/DL (74-106) H Calcium Level 9.6 MG/DL (8.5-10.1) Total Bilirubin 0.6 MG/DL (0.2-1.0) Aspartate Amino Transf (AST/SGOT) 46 U/L (15-37) H Alanine Aminotransferase (ALT/SGPT) 133 U/L (12-78) H Alkaline Phosphatase 81 U/L (46-116) Total Protein 7.5 G/DL (6.4-8.2) Albumin 4.2 G/DL (3.4-5.0) Globulin 3.3 g/dL Albumin/Globulin Ratio 1.3 (1.0-2.7) Lipase 170 U/L (73-393) Chest X-Ray Diagnostic Results Chest X-Ray Diagnostic Results : Chest X-Ray Ordered: Yes # of Views/Limited/Complete: 1 View Indication: Shortness of Breath EP Interpretation: Yes Interpretation: no consolidation, no effusion, no pneumothorax, no acute ca rdiopulmonary disease Impression: No acute disease Electronically Signed by: Electronically signed by Abhinav Perez MD Last Vital Signs Date Time Temp Pulse Resp B/P (MAP) Pulse Ox O2 Delivery O2 Flow Rate FiO2 12/03/19 14:40 97.9 18 134/79 99 Room Air 12/03/19 11:40 60 Status: improved Disposition: HOME, SELF-CARE Condition: Stable Scripts Ondansetron Odt* (ZOFRAN ODT*) 4 Mg Tab.rapdis 4 MG BC EVERY 6 HOURS PRN for Nausea & Vomiting, #10 TAB 0 Refills Prov: Abhinav Perez MD 12/03/19 Famotidine* (Pepcid 20mg tablet*) 20 Mg Tablet 20 MG ORAL DAILY for Gerd, #30 TAB 0 Refills Prov: Abhinav Perez MD 12/03/19 Azithromycin* (ZITHROMAX*) 250 Mg Tablet 250 MG ORAL DAILY, #6 TAB 0 Refills Take two tables once daily for 1 day, then one tablet once daily for 4 days. Prov: Abhinav Perez MD 12/03/19 Albuterol Sulfate* (Albuterol Sulfate Hfa*) 8.5 Gm Hfa.aer.ad 2 PUFF INH Q4H, #1 INH Prov: Abhinav Perez MD 12/03/19 Referrals: [facility],REFERR[facility] (PCP) Rosalino Haro [facility]. [facility] Patient Instructions: Viral Gastroenteritis, Adult, [id number] Abhinav Perez MD Dec 03, 2019 16:16
== END 2019-12-03 14:40 | disposition home or self-care (01) ==
LOC: EDBD 11:23 → EMR 12:00
DX: K52.9 Noninfective gastroenteritis and colitis, unspecified (principal); U07.1 COVID-19; J20.8 Acute bronchitis due to other specified organisms
CPT/HCPCS: 36415; 71045; 80053; 81003; 81025; 83690; 85025; 96361; 96374; 96375; J2405; J7030; S0028; Z7502; 99284